=== PATIENT | male | born 1990 | race Caucasian/White ===

== ENCOUNTER 2018-02-05 23:12 | Emergency (ER) | payer OTHER ==
[~2018-02-05 23:12] MED LIST: ACETAMINOPHEN500 MG PO; AMOXICILLIN500 MG PO
[2018-02-05 23:34] LABS: BASOPHIL (%) 0.4 % (0-1); EOSINOPHIL (%) 0.9 % (0-5); EOSINOPHIL COUNT 0.1 K/uL (0-0.3); HEMATOCRIT 41.3 % (38.0-50.0); HEMOGLOBIN 14.1 G/DL (12.5-16.6); IMMATURE GRANULOCYTE (%) 0.4 % (0.0-0.7); LYMPHOCYTE (%) 42.4 % (15-42); LYMPHOCYTE COUNT 3.4 K/uL (1.0-2.8); MCH 31.5 PG (29.0-34.0); MCHC 34.1 G/DL (30.0-36.0); MCV 92.2 FL (86-99); MONOCYTE (%) 4.6 % (3-12); MONOCYTE COUNT 0.4 K/uL (0-0.8); NEUTROPHIL (%) 51.3 % (45-76); NEUTROPHIL COUNT 4.1 K/uL (1.8-6.4); PLATELET COUNT 218 K/uL (156-360); RBC DIS.WIDTH-CV 12.2 % (11.8-14.6); RBC DIS.WIDTH-SD 41.7 % (39-53); RED BLOOD COUNT 4.48 M/uL (4.00-5.50)
[2018-02-05 23:45] LABS: AMYLASE 47 IU/L (1-118); CHLORIDE 109 mEq/L (99-109); POTASSIUM 3.2 mEq/L (3.7-5.4); SODIUM 145 mEq/L (136-147)
[2018-02-05 23:50] LABS: SERUM ETHYL ALCOHOL 198 mg/dL
[2018-02-05 23:51] LABS: CREATININE 0.9 mg/dL (0.6-1.3); GFR ESTIMATE (CALCULATED) > 59 mL/min/ (58.99-99999)
[2018-02-05 23:52] LABS: UREA NITROGEN (BUN) 6 mg/dL (9-23)
[2018-02-05 23:54] LABS: LIPASE 16 U/L (1.0-51.0)
[2018-02-06 00:24] LABS: GLUCOSE 146 mg/dL (70-99)
== END 2018-02-06 05:31 | disposition left against medical advice (07) ==
LOC: EME 23:12 → TRA 23:12
PROVIDERS: Emergency Medicine
DX: S73.014A Posterior dislocation of right hip, initial encounter (principal); S72.051A Unspecified fracture of head of right femur, initial encounter for closed fracture; S02.2XXA Fracture of nasal bones, initial encounter for closed fracture; S27.321A Contusion of lung, unilateral, initial encounter; S51.011A Laceration without foreign body of right elbow, initial encounter; S01.81XA Laceration without foreign body of other part of head, initial encounter; S10.91XA Abrasion of unspecified part of neck, initial encounter; V47.0XXA Car driver injured in collision with fixed or stationary object in nontraffic accident, initial encounter; Y92.410 Unspecified street and highway as the place of occurrence of the external cause; F10.129 Alcohol abuse with intoxication, unspecified; Y90.6 Blood alcohol level of 120-199 mg/100 ml; Z23 Encounter for immunization; F31.9 Bipolar disorder, unspecified
CPT/HCPCS: 70450; 70486; 71260; 72125; 72129; 72132; 72170; 72192; 74177; 80048; 81003; 82150; 83690; 85025; 86850; 86900; 86901; G0480; J3010